=== PATIENT | female | born 2000 | race American Indian/Alaskan Native ===

== ENCOUNTER 2021-09-15 15:03 | Emergency (ER) | payer OTHER ==
[2021-09-15 17:54] LABS: Amphetamine Screen,Urine Negative; Benzodiazepines Screen,Urine Negative; Cannabinoid Screen,Urine Negative; Cocaine Screen,Urine Negative; Methadone Screen,Urine Negative; Opiate Screen,Urine Negative
[2021-09-15 18:10] LABS: Basophils % (Auto) 0.6 % (0.0-1.8); Eosinophils % (Auto) 0.5 % (0.0-4.3); Hematocrit 39.4 % (30.3-42.9); Hemoglobin 13.2 gm/dl (10.1-14.3); Lymphocytes # (Auto) 2.3 K/mm3 (1.2-5.4); Lymphocytes % (Auto) 36.9 % (13.4-35.0); Mean Corpuscular HGB Conc 34 % (30-34); Mean Corpuscular Volume 93 fl (79-97); Monocytes # (Auto) 0.4 K/mm3 (0.0-0.8); Monocytes % (Auto) 6.9 % (0.0-7.3); Platelet Count 230 K/mm3 (140-440); Red Blood Count 4.26 M/mm3 (3.65-5.03); Red Cell Distribution Width 13.5 % (13.2-15.2)
--- NOTE | 2021-09-15 18:10 | Emergency Department Report ---
ED Psych HPI - General Chief Complaint: Psych Stated Complaint: POSSIBLE OVERDOSE Time Seen by Provider: 09/15/21 16:01 Source: patient, EMS Mode of arrival: Stretcher - History of Present Illness Initial Comments: 20 yo F who present with overdose on Ibuprofen about 6 tablets in an attempt to get attention she says. She reports that she really was not trying to kill herself. Police was notified by her friend who read what she posted on [employer]. She denies having any psychiatry diagnosis. No other modifying or associated factors. MD Complaint: other (intentional overdose ) - Related Data Previous Rx's Medication Instructions Recorded Last Taken Type Sertraline [Zoloft] 25 mg PO QDAY 30 Days #30 tab 09/18/21 Unknown Rx traZODone [Desyrel] 50 mg PO QHS 30 Days #15 tab 09/18/21 Unknown Rx Allergies Allergy/AdvReac Type Severity Reaction Status Date / Time No Known Allergies Allergy Unverified 09/15/21 15:12 ED Review of Systems ROS: Stated complaint: POSSIBLE OVERDOSE Other details as noted in HPI Comment: All other systems reviewed and negative Psychiatric: suicidal thoughts, other (intertional overdose ) ED Past Medical Hx - Medications Home Medications: Home Medications Medication Instructions Recorded Confirmed Last Taken Type Sertraline [Zoloft] 25 mg PO QDAY 30 Days #30 tab 09/18/21 Unknown Rx traZODone [Desyrel] 50 mg PO QHS 30 Days #15 tab 09/18/21 Unknown Rx ED Physical Exam - General Limitations: No Limitations General appearance: alert, in no apparent distress - Head Head exam: Present: normal inspection - Eye Eye exam: Present: normal appearance Pupils: Present: normal accommodation - ENT ENT exam: Present: normal exam, normal orophraynx, mucous membranes moist - Neck Neck exam: Present: normal inspection. Absent: tenderness - Respiratory Respiratory exam: Present: normal lung sounds bilaterally. Absent: respiratory distress, accessory muscle use - Cardiovascular Cardiovascular Exam: Present: regular rate, normal rhythm, normal heart sounds - GI/Abdominal GI/Abdominal exam: Present: soft, normal bowel sounds. Absent: distended, tenderness - Extremities Exam Extremities exam: Present: normal inspection, normal capillary refill. Absent: pedal edema - Back Exam Back exam: Absent: tenderness - Neurological Exam Neurological exam: Present: alert, oriented X3 - Psychiatric Psychiatric exam: Present: normal affect, normal mood - Skin Skin exam: Present: warm, normal color ED Course Vital Signs 09/15/21 09/15/21 09/16/21 15:07 17:06 09:12 Temperature 98.0 F 98.4 F Pulse Rate 100 H 70 Respiratory 14 18 Rate Blood Pressure 108/78 100/61 [Left] Blood Pressure [Right] O2 Sat by Pulse 98 98 100 Oximetry 09/16/21 09/16/21 09/17/21 09:13 20:15 02:58 Temperature 98.6 F 98.4 F Pulse Rate 62 71 Respiratory 18 16 Rate Blood Pressure [Left] Blood Pressure 110/70 97/55 [Right] O2 Sat by Pulse 100 100 98 Oximetry 09/17/21 09/17/21 09/17/21 08:54 08:55 19:37 Temperature 97.8 F 97.9 F Pulse Rate 80 79 Respiratory 16 18 Rate Blood Pressure [Left] Blood Pressure 110/64 102/69 [Right] O2 Sat by Pulse 97 97 96 Oximetry 09/18/21 09:21 Temperature 98.4 F Pulse Rate 81 Respiratory 18 Rate Blood Pressure [Left] Blood Pressure 99/59 [Right] O2 Sat by Pulse 100 Oximetry ED Medical Decision Making - Lab Data Result diagrams: 09/15/21 17:44 09/15/21 17:44 - Medical Decision Making Here with attempt on overdose on ibuprofen -- even though this patient denies trying to kill herself but her writing on the social medial is very concerning --and--differential diagnosis, including but not limited to: Encounter for behavioral health screening examination, encounter for medical screening examination--Due to these will go ahead and other routine labs studies including CBC, CMP and UA with UDS and thyroid profile in anticipation for mental health evaluation. Assessment and plan: here with concern with depressive feeling and suicidal ideation --but noted with reassuring vital signs, in no acute distress, who is cooperative, ANO x3, not homicidal but suicidal. At this point in time, this patient is cleared medically for psychiatry evaluation and recommendation. I will go ahead and order a 1013. He has not demonstrated any witnessed behavior here in the ED that would be consistent with acute decompensated psychosis. I have ordered mental health evaluation. Will go ahead and order typical laboratory studies in anticipation of mental health requests. Laboratory studies are reviewed and are unremarkable at this time. Awaiting mental health consultation and evaluation. Ultimate disposition as per mental health team. At this point in time, this patient does not appear to have an immediate medical contraindication to psychiatric admission, evaluation, consultation and placement. Patient has had his 1013 filled out by myself. Holding orders initiated. COVID swab ordered in anticipation of psychiatric placement. As needed medications are ordered. Patient remained suitable at this time for psychiatric placement, consultation and disposition. He does not appear to have an emergent medical condition present at this time. Critical care attestation.: If time is entered above; I have spent that time in minutes in the direct care of this critically ill patient, excluding procedure time. ED Disposition Clinical Impression: Overdose of nonsteroidal anti-inflammatory drug (NSAID) Qualifiers: Encounter type: initial encounter Injury intent: intentional self-harm Qualified Code(s): T39.392A - Poisoning by other nonsteroidal anti-inflammatory drugs [NSAID], intentional self-harm, initial encounter Disposition: HOME / SELF CARE / HOMELESS Is pt being admited?: No Does the pt Need Aspirin: No Condition: Stable Instructions: Intentional Drug Overdose Additional Instructions: OUTPATIENT MENTAL HEALTH RESOURCES [facility], [facility] Sanchez Sylvester MD: [address] [place] [address] [facility] [address] [place] [address] [place] [address] [place] [facility]: [facility] [address] [place] [address] [place] [address] [phone] [facility]: [facility] Healthcare: [address] [place] [address] [address] [place] [address] [place] [address] [facility] [address] [place] [facility]: Ze Godwin MD: [address] [facility] [address] [facility] [id number] [facility]: [address] [place] [address] [phone] [place] CRISIS AND ACCESS LINE: Professional and Agency Contacts To help Resolve Crises (31/08) [place] Crisis Line: Suicide Prevention Line: Crisis Text Line: Text START to 883290 Emergency: 911 Outpatient COMMUNITY Behavioral Health Resources: PRINCESS: [facility] [address] [place], [place] [address] [place]: [facility] [address] [place] [address] Wednesday thru Wednesday - 8am - 5pm Call to schedule an assessment for mental health and substance abuse programs [place]: [facility] Address: [address] [place] [address] Wednesday thru Wednesday- 7am-2pm [facility] Address: [address] [place] [address] Wednesday thru Wednesday: 8:30AM-5PM Prescriptions: traZODone [Desyrel] 50 mg PO QHS 30 Days #15 tab Sertraline [Zoloft] 25 mg PO QDAY 30 Days #30 tab Referrals: PRIMARY CARE,MD [Primary Care Provider] - 3-5 Days
[2021-09-15 18:31] LABS: Alanine Aminotransferase 6 units/L (7-56); Albumin 4.4 g/dL (3.9-5); Blood Urea Nitrogen 10 mg/dL (7-17); Calcium 9.3 mg/dL (8.4-10.2); Hemolysis Index 12
[2021-09-15 18:43] LABS: BUN/Creatinine Ratio 14
[2021-09-15 18:44] LABS: Free T4 (Free Thyroxine) 1.25 ng/dL (0.76-1.46)
[2021-09-15 18:57] LABS: RBC,Urine < 1.0 /HPF (0.0-6.0); WBC,Urine < 1.0 /HPF (0.0-6.0)
[2021-09-15 19:04] LABS: Color,Urine Yellow (Yellow)
[2021-09-15 19:05] LABS: Bilirubin,Urine Negative (Negative); Blood,Urine Negative (Negative); Urobilinogen,Urine < 2.0 mg/dL (<2.0)
--- NOTE | 2021-09-16 11:23 | Consultation ---
History of Present Illness - Reason for Consult Consult date: 09/16/21 Reason for consult: OD - History of Present Psychiatric Illness PER ED NOTES:Pt is a 20 yo F who present with overdose on Ibuprofen about 6 tablets in an attempt to get attention she says. She reports that she really was not trying to kill herself. Police was notified by her friend who read what she posted on [employer]. She denies having any psychiatry diagnosis. No other modifying or associated factors. This Patient is 20 yr old female with no prior psychiatric history. Pt was seen today calm and cooperative, alert and oriented x 4. Pt reports taking 5 pills of ibuprofen but denies self harm. The patient is poor historian, hence unable to obtain detailed information. Pt denies any current suicidal or homicidal ideation and denies hallucinations. Will recommend psyc hiatric inpatient due to recent attempt. PAST PSYCHIATRIC HISTORY Diagnoses: Denies Suicide attempts or Self-harm behavior: Denies Prior psychiatric hospitalizations: Denies Substance Abuse history: Denies Previous psychiatric medications tried: Denies Outpatient treatment: Denies PAST MEDICAL HISTORY: None reported Family Psychiatric History: None reported or documented SOCIAL HISTORY Marital Status: single Living Arrangements: Lives with family Employment Status: unknown Access to guns/weapons: Denies Education: College History of Abuse: No Legal History: Denies REVIEW OF SYSTEMS Constitutional: Negative for weight loss ENT: Negative for stridor Respiratory: Negative for cough or hemoptysis All other systems reviewed and are negative MENTAL STATUS EXAMINATION General Appearance and Behavior: Age appropriate, good hygiene, wearing appropriate clothes, good eye contact, calm, cooperative Cooperation: Participating/engaged Psychomotor Behavior: Psychomotor normal Mood: Calm Affect and affective range: congruent with stated mood Thought Process: goal directed Thought Content: Reality Oriented Speech: Normal tone and pace Suicidal Ideation: Denies Homicidal Ideation: Denies Hallucinations: Denies Delusions: None elicited Impulse Control: Normal Insight and Judgment: Limited insight and judgment Memory: Normal Attention: Attentive Orientation: Alert, oriented Assessment and Plan Major Depressive Disorder Treatment Plan 1013 Continue home Meds Sertraline 25mg daily, Trazodone 25mg PO QHS Risks, benefits and alternatives of medications discussed with the patient, questions answered and consent obtained from patient. PSYCHOTHERAPY: Supportive psychotherapy provided MEDICAL: Per primary team DELIRIUM PRECAUTIONS: Please re-orient patient frequently, keep lights on during the day, and minimize benzodiazepines and opiates as these medications could worsen patient's confusion. 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 Will follow. Thank you for the consult. Please contact with any questions and/or concerns. Case staffed with Dr. Garcia Medications and Allergies Medications and Allergies Allergies Allergy/AdvReac Type Severity Reaction Status Date / Time No Known Allergies Allergy Unverified 09/15/21 15:12 Mental Status Exam - Vital signs Last Vital Signs Temp 98.4 F 09/16/21 09:12 Pulse 70 09/16/21 09:12 Resp 18 09/16/21 09:12 BP 100/61 09/16/21 09:12 Pulse Ox 100 09/16/21 09:13 Results Result Diagrams: 09/15/21 17:44 09/15/21 17:44 Abnormal lab results 09/15/21 09/15/21 09/15/21 Range/Units 16:19 17:44 17:44 Lymph % (Auto) 36.9 H (13.4-35.0) % Carbon Dioxide (22-30) mmol/L Total Bilirubin (0.1-1.2) mg/dL ALT (7-56) units/L Ur Specific [place] 1.035 H (1.003-1.030) Salicylates < 0.3 L (2.8-20.0) mg/dL 09/15/21 Range/Units 17:44 Lymph % (Auto) (13.4-35.0) % Carbon Dioxide 21 L (22-30) mmol/L Total Bilirubin 1.70 H (0.1-1.2) mg/dL ALT 6 L (7-56) units/L Ur Specific [place] (1.003-1.030) Salicylates (2.8-20.0) mg/dL All other labs normal.
[2021-09-16] MEDS: SERTRALINE 25 MG TAB PO SCH (12:12)
[2021-09-16] MEDS ORDERED: traZODone 50 MG TAB PO SCH (22:00)
[2021-09-17] MEDS: SERTRALINE 25 MG TAB PO SCH (10:00)
--- NOTE | 2021-09-17 11:21 | Progress Note ---
Subjective - Reason for Consult Consult date: 09/17/21 Reason for consult: OD - Chief Complaint Chief complaint: The patient was seen today. she reports doing well. The patient is focused on discharge. She denies any current suicidal/homicidal ideation and denies hallucinations. Will continue recommending inpatient psychiatry due to recent suicidal attempt. REVIEW OF SYSTEMS Constitutional: Negative for weight loss ENT: Negative for stridor Respiratory: Negative for cough or hemoptysis All other systems reviewed and are negative MENTAL STATUS EXAMINATION General Appearance and Behavior: Age appropriate, good hygiene, wearing appropriate clothes, good eye contact, calm, cooperative Cooperation: Participating/engaged Psychomotor Behavior: Psychomotor normal Mood: Calm Affect and affective range: congruent with stated mood Thought Process: goal directed Thought Content: Reality Oriented Speech: Normal tone and pace Suicidal Ideation: Denies Homicidal Ideation: Denies Hallucinations: Denies Delusions: None elicited Impulse Control: Normal Insight and Judgment: Limited insight and judgment Memory: Normal Attention: Attentive Orientation: Alert, oriented Assessment and Plan Major Depressive Disorder Treatment Plan 1013 Continue home Meds Sertraline 25mg daily, Trazodone 25mg PO QHS Risks, benefits and alternatives of medications discussed with the patient, questions answered and consent obtained from patient. PSYCHOTHERAPY: Supportive psychotherapy provided MEDICAL: Per primary team DELIRIUM PRECAUTIONS: Please re-orient patient frequently, keep lights on during the day, and minimize benzodiazepines and opiates as these medications could worsen patient's confusion. 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 Will follow. Thank you for the consult. Please contact with any questions and/or concerns. Case staffed with Dr. Garcia Medications and Allergies Mental Status Exam - Vital signs Last Vital Signs Temp 97.8 F 09/17/21 08:54 Pulse 80 09/17/21 08:54 Resp 16 09/17/21 08:54 BP 110/64 09/17/21 08:54 Pulse Ox 97 09/17/21 08:55
[2021-09-18 09:24] VITALS: BP 99/59
[2021-09-18] MEDS: SERTRALINE 25 MG TAB PO SCH (09:57)
--- NOTE | 2021-09-18 10:05 | Progress Note ---
Subjective - Reason for Consult Consult date: 09/18/21 Reason for consult: OD - Chief Complaint Chief complaint: The patient was seen today. she reports doing well. The patient is remorse about her recent suicidal attempt and she continues to denies self harm. She denies any current suicidal/homicidal ideation and denies hallucinations. REVIEW OF SYSTEMS Constitutional: Negative for weight loss ENT: Negative for stridor Respiratory: Negative for cough or hemoptysis All other systems reviewed and are negative MENTAL STATUS EXAMINATION General Appearance and Behavior: Age appropriate, good hygiene, wearing appropriate clothes, good eye contact, calm, cooperative Cooperation: Participating/engaged Psychomotor Behavior: Psychomotor normal Mood: Calm Affect and affective range: congruent with stated mood Thought Process: goal directed Thought Content: Reality Oriented Speech: Normal tone and pace Suicidal Ideation: Denies Homicidal Ideation: Denies Hallucinations: Denies Delusions: None elicited Impulse Control: Normal Insight and Judgment: Limited insight and judgment Memory: Normal Attention: Attentive Orientation: Alert, oriented Assessment and Plan Major Depressive Disorder Treatment Plan DC 1013 Continue home Meds Sertraline 25mg daily, Trazodone 25mg PO QHS Risks, benefits and alternatives of medications discussed with the patient, questions answered and consent obtained from patient. PSYCHOTHERAPY: Supportive psychotherapy provided MEDICAL: Per primary team DELIRIUM PRECAUTIONS: Please re-orient patient frequently, keep lights on during the day, and minimize benzodiazepines and opiates as these medications could worsen patient's confusion. 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 Escalation Engineer will provide patient with psychiatric out patient resources and safety plan. Will sign off. Thank you for the consult. Please contact with any questions and/or concerns. Case staffed with Dr. Garcia Medications and Allergies Mental Status Exam - Vital signs Last Vital Signs Temp 98.4 F 09/18/21 09:21 Pulse 81 09/18/21 09:21 Resp 18 09/18/21 09:21 BP 99/59 09/18/21 09:21 Pulse Ox 100 09/18/21 09:21
--- NOTE | 2021-09-18 11:21 | Emergency Department Report ---
Blank Doc - Documentation Documentation: This is a 20-year-old female who was being evaluated for a overdose on nonster oidal anti-inflammatories. Patient has been cleared by mental health. Safety plan was completed, and patient is being provided with outpatient mental health referrals and crisis line numbers for discharge. I will resend the 1013 and discharge the patient home.
== END 2021-09-18 11:39 | disposition home or self-care (01) ==
LOC: ED 15:03 → EEVIPCON 15:03 → ED 09-18 11:39
DX: T39.392A Poisoning by other nonsteroidal anti-inflammatory drugs [NSAID], intentional self-harm, initial encounter (principal); Z20.822 Contact with and (suspected) exposure to COVID-19; Y92.89 Other specified places as the place of occurrence of the external cause; Z79.899 Other long term (current) drug therapy
CPT/HCPCS: 36415; 80053; 80307; 81001; 84439; 84443; 84703; 85025; 99284; U0003; 80320; G0480